=== PATIENT | male | born 1995 | race Caucasian/White ===

== ENCOUNTER 2016-10-20 12:14 | Emergency (ER) | payer OTHER | END 2016-10-20 13:48 | disposition home or self-care (01) | LOC: FER 12:14 | DX: K04.7 Periapical abscess without sinus (principal); K02.9 Dental caries, unspecified | CPT/HCPCS: J0561 ==

== ENCOUNTER 2020-05-04 15:05 | Emergency (ER) | payer OTHER ==
[~2020-05-04 15:05] MED LIST: AMOX TR-K CLV1 EAC3 PO; BACTRIM DS TAB1 EACH PO; CITRATE OF MAG296 ML PO; ENDOCET 5-3251 EACH PO; FLOMAX0.4 MG PO; NAPROXEN500 MG PO; NORCO 5-325 TA1 EACH PO; PENICILLIN V P250 M1 PO; PERCOCET 5-3251 EACH PO; VOLTAREN **OUT75 MG PO; ZOFRAN4 MG PO
[2020-05-04] MEDS ORDERED: NAPROXEN500 MG PO (17:01)
== END 2020-05-04 17:20 | disposition home or self-care (01) ==
LOC: FER 15:05
DX: S52.612A Displaced fracture of left ulna styloid process, initial encounter for closed fracture (principal); M25.512 Pain in left shoulder; L53.9 Erythematous condition, unspecified; Z87.442 Personal history of urinary calculi; V49.40XA Driver injured in collision with unspecified motor vehicles in traffic accident, initial encounter; Y92.410 Unspecified street and highway as the place of occurrence of the external cause
CPT/HCPCS: 73000; 73110

== ENCOUNTER 2020-08-20 10:24 | Emergency (ER) | payer OTHER ==
[2020-08-20 11:35] LABS: BILIRUBIN NEGATIVE (NEGATIVE); BLOOD NEGATIVE Ery/uL (NEGATIVE); COLOR YELLOW (YELLOW); GLUCOSE (U) NORMAL (NORMAL); LEUKOCYTES NEGATIVE Leu/uL (NEGATIVE); NITRITE NEGATIVE (NEGATIVE); PROTEIN TRACE (LOW) mg/dL (NEGATIVE); SPECIFIC GRAVITY 1.015 (1.001-1.030); pH 8.5 (5.0-9.0)
[2020-08-20 11:37] LABS: BASOPHIL 0.6 % (0-2); EOSINOPHIL 3.5 % (0-5); HGB 15.8 g/dl (13.2-18.0); LYMPHOCYTE 23.1 % (15-48); MCH 31.5 pg (25.0-31.0); MCHC 35.1 g/dL (32.0-36.0); MCV 89.8 fL (78.0-100.0); MONOCYTE 7.8 % (0-12); MPV 11.2 fL (6.0-9.5); NEUTROPHIL 64.7 % (41-80); NRBC 0; PLT 246 K/uL (150-400); RBC 5.01 M/uL (4.70-6.00); RDW 12.3 % (11.5-14.0); WBC 7.7 K/uL (4.0-10.5)
[2020-08-20 11:42] LABS: CLARITY CLOUDY (CLEAR)
[2020-08-20 11:48] LABS: AMORPHOUS PHOSPHATE CRYSTALS MODERATE
[2020-08-20] MEDS ORDERED: BENTYL10 MG PO (12:44)
[2020-08-23 00:27] LABS: CHLAMYDIA TRACHOMATIS, NAA Negative (Negative); NEISSERIA GONORRHOEAE, NAA Negative (Negative)
== END 2020-08-20 13:07 | disposition home or self-care (01) ==
LOC: FER 10:24
PROVIDERS: Emergency Medicine
DX: R10.32 Left lower quadrant pain (principal); Z20.2 Contact with and (suspected) exposure to infections with a predominantly sexual mode of transmission
CPT/HCPCS: 36415; 74022; 81001; 85025; 87491; 87591

== ENCOUNTER 2020-08-22 12:51 | Emergency (ER) | payer OTHER ==
[~2020-08-22 12:51] MED LIST changes: +BENTYL10 MG PO
[2020-08-22 13:29] LABS: BILIRUBIN NEGATIVE (NEGATIVE); BLOOD NEGATIVE Ery/uL (NEGATIVE); CLARITY CLOUDY (CLEAR); COLOR YELLOW (YELLOW); GLUCOSE (U) NORMAL (NORMAL); LEUKOCYTES NEGATIVE Leu/uL (NEGATIVE); NITRITE NEGATIVE (NEGATIVE); PROTEIN NEGATIVE (NEGATIVE); pH 8.5 (5.0-9.0)
[2020-08-22 13:35] LABS: BASOPHIL 0.6 % (0-2); HCT 46.2 % (42.0-52.0); HGB 16.3 g/dl (13.2-18.0); LYMPHOCYTE 20.9 % (15-48); MCH 31.7 pg (25.0-31.0); MCHC 35.3 g/dL (32.0-36.0); MCV 89.9 fL (78.0-100.0); MONOCYTE 8.4 % (0-12); MPV 10.9 fL (6.0-9.5); NEUTROPHIL 67.8 % (41-80); NRBC 0; PLT 275 K/uL (150-400); RBC 5.14 M/uL (4.70-6.00); RDW 12.5 % (11.5-14.0); WBC 10.6 K/uL (4.0-10.5)
[2020-08-22 13:58] LABS: ALBUMIN 4.4 g/dL (3.4-5.0); BILIRUBIN - TOTAL 0.6 mg/dL (0.2-1.0); BUN/CREAT RATIO (CALC) 8.4 RATIO; CREATININE 1.07 mg/dL (0.67-1.17); GLOBULIN (CALCULATION) 3.3 g/dL; POTASSIUM 4.1 mmol/L (3.5-5.1); TOTAL PROTEIN 7.7 g/dL (6.4-8.2)
== END 2020-08-22 16:05 | disposition home or self-care (01) ==
LOC: FER 12:51
PROVIDERS: Emergency Medicine
DX: R10.31 Right lower quadrant pain (principal); R10.32 Left lower quadrant pain
CPT/HCPCS: 36415; 80053; 81003; 85025; Q9967

== ENCOUNTER 2020-09-03 14:42 | Emergency (ER) | payer OTHER ==
[2020-09-03 15:35] LABS: BILIRUBIN 1+ mg/dL (NEGATIVE); BLOOD NEGATIVE Ery/uL (NEGATIVE); CLARITY CLEAR (CLEAR); COLOR YELLOW (YELLOW); GLUCOSE (U) NORMAL (NORMAL); LEUKOCYTES NEGATIVE Leu/uL (NEGATIVE); NITRITE NEGATIVE (NEGATIVE); PROTEIN NEGATIVE (NEGATIVE); SPECIFIC GRAVITY 1.025 (1.001-1.030); pH 6.5 (5.0-9.0)
[2020-09-03 15:39] LABS: AMPHETAMINES NEGATIVE (NEGATIVE); BARBITURATES NEGATIVE (NEGATIVE); ECSTASY (MDMA) NEGATIVE (NEGATIVE); MARIJUANA (THC) POSITIVE (NEGATIVE); METHADONE NEGATIVE (NEGATIVE); OPIATES NEGATIVE (NEGATIVE); OXYCODONE NEGATIVE (NEGATIVE)
[2020-09-03 15:40] LABS: BASOPHIL 0.6 % (0-2); EOSINOPHIL 1.7 % (0-5); HCT 47.3 % (42.0-52.0); HGB 16.2 g/dl (13.2-18.0); LYMPHOCYTE 22.4 % (15-48); MCH 31.3 pg (25.0-31.0); MCHC 34.2 g/dL (32.0-36.0); MCV 91.5 fL (78.0-100.0); MONOCYTE 7.5 % (0-12); MPV 11.6 fL (6.0-9.5); NEUTROPHIL 67.5 % (41-80); NRBC 0; PLT 250 K/uL (150-400); RBC 5.17 M/uL (4.70-6.00); RDW 12.5 % (11.5-14.0)
[2020-09-03 15:43] LABS: WBC 8.8 K/uL (4.0-10.5)
[2020-09-03 15:56] LABS: ALBUMIN 4.2 g/dL (3.4-5.0); BILIRUBIN - TOTAL 0.6 mg/dL (0.2-1.0); BUN/CREAT RATIO (CALC) 9.2 RATIO; CREATININE 1.09 mg/dL (0.67-1.17); GLOBULIN (CALCULATION) 3.3 g/dL; TOTAL PROTEIN 7.5 g/dL (6.4-8.2)
[2020-09-03] MEDS ORDERED: PROCTOFOAM-HC10 GM TOP (16:54)
[2020-09-03] MEDS ORDERED: BENTYL10 MG PO (16:54)
== END 2020-09-03 17:15 | disposition home or self-care (01) ==
LOC: FER 14:42
PROVIDERS: Emergency Medicine
DX: K58.9 Irritable bowel syndrome, unspecified (principal); K64.4 Residual hemorrhoidal skin tags
CPT/HCPCS: 36415; 80053; 80305; 81003; 85025; Q9967

== ENCOUNTER → 2020-09-06 | Day surgery (SDC) | payer OTHER ==
[~2020-09-06] MED LIST changes: +FLAGYL500 MG PO; +PROCTOFOAM-HC10 GM TOP; +PROCTOZONE-HC 230 GM TOP; +SOOTHE XP EYE D15 ML AS
== END | disposition home or self-care (01) ==
LOC: FAS 07:56
DX: K64.4 Residual hemorrhoidal skin tags (principal); K64.8 Other hemorrhoids; R10.33 Periumbilical pain; R19.7 Diarrhea, unspecified; F17.210 Nicotine dependence, cigarettes, uncomplicated; F31.9 Bipolar disorder, unspecified; F12.90 Cannabis use, unspecified, uncomplicated; Z86.16 Personal history of COVID-19
CPT/HCPCS: J2704; J7120

== ENCOUNTER 2020-10-02 04:58 | Emergency (ER) | payer OTHER ==
[~2020-10-02 04:58] MED LIST changes: -FLAGYL500 MG PO; -PROCTOZONE-HC 230 GM TOP; -SOOTHE XP EYE D15 ML AS
[2020-10-02] MEDS ORDERED: SOOTHE XP EYE D15 ML AS (05:52)
== END 2020-10-02 08:07 | disposition home or self-care (01) ==
LOC: FER 04:58
DX: H61.22 Impacted cerumen, left ear (principal)
CPT/HCPCS: 32555; 99282

== ENCOUNTER 2020-10-28 14:13 | Emergency (ER) | payer OTHER ==
[~2020-10-28 14:13] MED LIST changes: +SOOTHE XP EYE D15 ML AS
[2020-10-28] MEDS ORDERED: PROCTOZONE-HC 230 GM TOP (15:49)
[2020-10-28] MEDS ORDERED: FLAGYL500 MG PO (15:49)
== END 2020-10-28 16:04 | disposition home or self-care (01) ==
LOC: FER 14:13
DX: K63.89 Other specified diseases of intestine (principal)
CPT/HCPCS: 99283

== ENCOUNTER 2021-09-09 10:42 | Emergency (ER) | payer OTHER ==
[~2021-09-09 10:42] MED LIST changes: +FLAGYL500 MG PO; +PROCTOZONE-HC 230 GM TOP
[2021-09-09 12:12] LABS: BILIRUBIN NEGATIVE (NEGATIVE); BLOOD NEGATIVE Ery/uL (NEGATIVE); CLARITY CLEAR (CLEAR); COLOR YELLOW (YELLOW); GLUCOSE (U) NORMAL (NORMAL); LEUKOCYTES NEGATIVE Leu/uL (NEGATIVE); NITRITE NEGATIVE (NEGATIVE); PROTEIN TRACE (LOW) mg/dL (NEGATIVE); pH 8.5 (5.0-9.0)
[2021-09-09 12:21] LABS: BASOPHIL 0.4 % (0-2); EOSINOPHIL 2.9 % (0-5); HCT 51.1 % (42.0-52.0); HGB 17.2 g/dl (13.2-18.0); LYMPHOCYTE 25.9 % (15-48); MCH 30.7 pg (25.0-31.0); MCHC 33.7 g/dL (32.0-36.0); MCV 91.3 fL (78.0-100.0); MONOCYTE 9.1 % (0-12); MPV 11.5 fL (6.0-9.5); NEUTROPHIL 61.4 % (41-80); NRBC 0; PLT 237 K/uL (150-400); RDW 12.6 % (11.5-14.0); WBC 8.9 K/uL (4.0-10.5)
[2021-09-09 12:34] LABS: ALBUMIN 4.6 g/dL (3.4-5.0); BILIRUBIN - TOTAL 0.8 mg/dL (0.2-1.0); BUN/CREAT RATIO (CALC) 10.2 RATIO; CREATININE 1.08 mg/dL (0.67-1.17); GLOBULIN (CALCULATION) 3.3 g/dL; POTASSIUM 4.7 mmol/L (3.5-5.1); TOTAL PROTEIN 7.9 g/dL (6.4-8.2)
[2021-09-09] MEDS ORDERED: BENTYL10 MG PO (14:00)
[2021-09-09] MEDS ORDERED: PROCTOFOAM-HC10 GM PR (14:00)
[2021-09-09] MEDS ORDERED: SENOKOT8.6 MG PO (14:00)
[2021-09-09] MEDS ORDERED: FLAGYL500 MG PO (14:00)
== END 2021-09-09 14:44 | disposition home or self-care (01) ==
LOC: FER 10:42
PROVIDERS: Emergency Medicine
DX: K58.1 Irritable bowel syndrome with constipation (principal); Z28.310 Unvaccinated for COVID-19
CPT/HCPCS: 36415; 80053; 81003; 83690; 84484; 85025; Q9967